=== PATIENT | female | born 1980 | race Caucasian/White ===

== ENCOUNTER 2017-12-15 06:05 | Day surgery (SDC) | payer MEDICAID ==
[~2017-12-15] VITALS: Ht 165.1 cm; Wt 46.2 kg
[~2017-12-15 06:05] MED LIST: CARB200T13 PO; ESTR1TAB15 PO; FERR240T2 PO; HYDR25CA94 PO; ONDA4TAB13 SL; OXCA150T PO; SUMA100T4 PO; SUMA20SP2 NS; TRAZ100T15 PO; VENL37.57 PO; VITAMIN D PO; [UNRECOGNIZED DRUG - CODE] PO; [UNRECOGNIZED DRUG - OTHER] PO
[2017-12-15] MEDS ORDERED: LACTATED RINGERS 1,000 ML IV SCH (07:20)
[2017-12-15] MEDS ORDERED: PROPOFOL 10 MG/ML, 20ML ONE (08:15)
[2017-12-15] MEDS ORDERED: ACETAMINOPHEN 325 MG TABLET PO PRN (09:00)
[2017-12-15] MEDS ORDERED: FENTANYL PF 100 MCG/2ML IV PRN (09:00)
[2017-12-15] MEDS ORDERED: PROMETHAZINE 25 MG/ML, 1ML IV PRN (09:00)
[2017-12-15] MEDS ORDERED: LORazepam 2 MG/ML, 1ML IVPush PRN (09:00)
[2017-12-15] MEDS ORDERED: ONDANSETRON 2MG/ML, 2ML IVPush PRN (09:00)
[2017-12-15] MEDS ORDERED: MIDAZOLAM 1 MG/ML, 2ML IV PRN (09:00)
[2017-12-15] MEDS ORDERED: OXYcodone 5 MG/5 ML ORAL.SOL UDC PO PRN (09:00)
== END 2017-12-15 09:50 ==
LOC: OUT 06:05
PROVIDERS: ATTEND Surgery
DX: K63.89 Other specified diseases of intestine (principal); D50.9 Iron deficiency anemia, unspecified; G62.9 Polyneuropathy, unspecified; Z93.3 Colostomy status; Z87.39 Personal history of other diseases of the musculoskeletal system and connective tissue; Z98.890 Other specified postprocedural states; Z90.710 Acquired absence of both cervix and uterus; Z72.89 Other problems related to lifestyle; Z87.891 Personal history of nicotine dependence; Z88.1 Allergy status to other antibiotic agents; Z88.0 Allergy status to penicillin; Z88.8 Allergy status to other drugs, medicaments and biological substances
CPT/HCPCS: 45330; J2704; J7120

== ENCOUNTER 2021-03-14 03:54 | Inpatient (IN) | payer MEDICAID ==
[~2021-03-14] VITALS: Ht 165.1 cm; Wt 55.6 kg
[~2021-03-14 03:54] MED LIST changes: -OXCA150T PO; +OXCA150T18 PO; +TRAZ-175 PO; -TRAZ100T15 PO
[2021-03-14] MEDS ORDERED: ONDANSETRON 2MG/ML, 2ML IVPush PRN ×2 (04:30→05:30)
[2021-03-14] MEDS ORDERED: SODIUM CHLORIDE 0.9% 1,000 ML IV ONE (04:30)
[2021-03-14] MEDS ORDERED: OXYC5TAB2 PO (04:37)
[2021-03-14] MEDS ORDERED: OXYC10SY PO (04:37)
--- NOTE | 2021-03-14 04:46 | NUR ---
pt refuses NG tube because "it will hurt", consequences of actions explained, pt still refuses
[2021-03-14] MEDS ORDERED: MIDAZOLAM 1 MG/ML, 2ML IVPush ONE (05:00)
[2021-03-14 05:06] LABS: BASOPHILS % (AUTO) 1 % (0-1); EOSINOPHILS % (AUTO) 1 % (1-7); LYMPHOCYTES % (AUTO) 18 % (22-44); MEAN CORPUSCULAR HEMOGLOBIN 25.5 pg (27.0-34.8); MEAN CORPUSCULAR HGB CONC 32.1 g/dL (32.4-35.8); MEAN PLATELET VOLUME 8.3 fL (7.4-10.4); MONOCYTES % (AUTO) 4 % (2-9); NEUTROPHILS % (AUTO) 77 % (42-75); PLATELET COUNT 231 x10^3/uL (130-400); RED BLOOD COUNT 5.02 x10^6/uL (3.82-5.3); RED CELL DISTRIBUTION WIDTH 18.5 % (9.6-15.2)
[2021-03-14 05:14] LABS: ALANINE AMINOTRANSFERASE 11 U/L (12-78); ALBUMIN 2.1 g/dL (3.4-5.0); ANION GAP 9 mmol/L (5-15); CALCIUM 7.4 mg/dL (8.5-10.1); CHLORIDE 102 mmol/L (98-107); CREATININE 1.11 mg/dL (0.55-1.02)
[2021-03-14 05:16] LABS: ALKALINE PHOSPHATASE 109 U/L (45-117); BILIRUBIN,TOTAL 0.2 mg/dL (0.2-1.0); TOTAL PROTEIN 6.6 g/dL (6.4-8.2)
[2021-03-14 05:28] VITALS: BP 105/72
[2021-03-14] MEDS ORDERED: PHARMACY MAY ADJ FOR RENAL FX MC PRN (05:30)
[2021-03-14] MEDS ORDERED: SODIUM CHLORIDE 0.9% 1,000 ML IV SCH (05:30)
[2021-03-14] MEDS: HYDROmorphone 2 MG/ML, 1ML IVPush PRN ×5 (05:58→23:28)
[2021-03-14] MEDS: CEFTRIAXONE 1,000 MG in DEXTROSE 5% 50 ML IVPB SCH (06:11)
[2021-03-14 06:13] VITALS: BP 92/58
[2021-03-14 06:15] VITALS: BP 92/68
[2021-03-14] MEDS: AZITHROMYCIN 500 MG in SODIUM CHLORIDE 0.9% 250 ML IV SCH (08:53)
[2021-03-14 11:27] VITALS: BP 93/59
[2021-03-14] MEDS: D5%-LACTATED RINGERS 1,000 ML IV SCH ×2 (15:24→23:28)
[2021-03-14] MEDS ORDERED: METH-640 PO (17:17)
[2021-03-14] MEDS ORDERED: ONDA8TAB16 PO (17:17)
[2021-03-14] MEDS ORDERED: TRAZ-96 PO (17:17)
[2021-03-14] MEDS ORDERED: CYCL10TA2 PO (17:17)
[2021-03-14] MEDS ORDERED: OXYC15TA3 PO (17:17)
[2021-03-14] MEDS ORDERED: SERT-238 PO (17:17)
[2021-03-14] MEDS ORDERED: MIRT-14 PO (17:17)
[2021-03-14] MEDS ORDERED: PANT40TA6 PO (17:17)
[2021-03-14] MEDS ORDERED: PREG50CA58 PO (17:17)
[2021-03-14 20:04] VITALS: BP 110/71
[2021-03-15 01:28] VITALS: BP 98/63
[2021-03-15] MEDS: HYDROmorphone 2 MG/ML, 1ML IVPush PRN ×2 (03:59→09:05)
[2021-03-15 05:52] LABS: BASOPHILS % (AUTO) 1 % (0-1); EOSINOPHILS % (AUTO) 1 % (1-7); LYMPHOCYTES % (AUTO) 14 % (22-44); MEAN CORPUSCULAR HEMOGLOBIN 25.3 pg (27.0-34.8); MEAN CORPUSCULAR HGB CONC 32.1 g/dL (32.4-35.8); MEAN PLATELET VOLUME 8.3 fL (7.4-10.4); MONOCYTES % (AUTO) 5 % (2-9); NEUTROPHILS % (AUTO) 80 % (42-75); PLATELET COUNT 303 x10^3/uL (130-400); RED BLOOD COUNT 4.39 x10^6/uL (3.82-5.3); RED CELL DISTRIBUTION WIDTH 18.4 % (9.6-15.2)
[2021-03-15 06:10] LABS: ALANINE AMINOTRANSFERASE 11 U/L (12-78); ALBUMIN 1.9 g/dL (3.4-5.0); ANION GAP 10 mmol/L (5-15); CALCIUM 7.4 mg/dL (8.5-10.1); CHLORIDE 109 mmol/L (98-107); CREATININE 0.63 mg/dL (0.55-1.02)
[2021-03-15 06:13] LABS: ALKALINE PHOSPHATASE 85 U/L (45-117); BILIRUBIN,TOTAL 0.2 mg/dL (0.2-1.0); TOTAL PROTEIN 5.6 g/dL (6.4-8.2)
[2021-03-15] MEDS: CEFTRIAXONE 1,000 MG in DEXTROSE 5% 50 ML IVPB SCH (06:25)
[2021-03-15 06:50] VITALS: BP 108/63
[2021-03-15] MEDS: AZITHROMYCIN 500 MG in SODIUM CHLORIDE 0.9% 250 ML IV SCH (09:05)
[2021-03-15] MEDS: ONDANSETRON ODT 4 MG PO SCH ×3 (12:00→20:43)
[2021-03-15] MEDS ORDERED: MAGNESIUM SULFATE PMX 4GM/100M 100 ML IVPB ONE (12:00)
[2021-03-15] MEDS ORDERED: POTASSIUM CHLORIDE 40 MEQ in SODIUM CHLORIDE 0.9% 500 ML IV ONE (12:00)
[2021-03-15] MEDS: PREGABALIN 50 MG CAP PO SCH ×3 (12:00→20:43)
[2021-03-15] MEDS ORDERED: OXYcodone IR 5MG TABLET PO SCH (12:00)
[2021-03-15 12:23] VITALS: BP 99/59
[2021-03-15] MEDS: PANTOPRAZOLE 40MG TABLET PO SCH (12:44)
[2021-03-15] MEDS: CYCLOBENZAPRINE 10 MG TABLET PO SCH ×3 (12:44→20:44)
[2021-03-15] MEDS: SERTRALINE 100MG TABLET PO SCH (12:44)
[2021-03-15] MEDS: OXYcodone IR 5MG TABLET PO PRN (17:54)
[2021-03-15 19:27] VITALS: BP 104/68
[2021-03-15] MEDS ORDERED: TRAZODONE 50MG TABLET PO SCH (21:00)
[2021-03-15] MEDS ORDERED: MIRTAZAPINE 15 MG TABLET PO SCH (21:00)
[2021-03-16] MEDS: OXYcodone IR 5MG TABLET PO PRN ×4 (00:12→14:35)
[2021-03-16] MEDS: D5%-LACTATED RINGERS 1,000 ML IV SCH ×2 (00:15→13:50)
[2021-03-16 01:18] VITALS: BP 100/62
[2021-03-16] MEDS: CEFTRIAXONE 1,000 MG in DEXTROSE 5% 50 ML IVPB SCH (05:00)
[2021-03-16 05:49] LABS: BASOPHILS % (AUTO) 1 % (0-1); EOSINOPHILS % (AUTO) 1 % (1-7); LYMPHOCYTES % (AUTO) 31 % (22-44); MEAN CORPUSCULAR HEMOGLOBIN 25.3 pg (27.0-34.8); MEAN CORPUSCULAR HGB CONC 31.7 g/dL (32.4-35.8); MEAN PLATELET VOLUME 8.2 fL (7.4-10.4); MONOCYTES % (AUTO) 5 % (2-9); NEUTROPHILS % (AUTO) 62 % (42-75); PLATELET COUNT 354 x10^3/uL (130-400); RED BLOOD COUNT 4.62 x10^6/uL (3.82-5.3); RED CELL DISTRIBUTION WIDTH 18.4 % (9.6-15.2)
[2021-03-16 05:55] LABS: CHLORIDE 112 mmol/L (98-107)
[2021-03-16 06:06] LABS: ALANINE AMINOTRANSFERASE 11 U/L (12-78); ALBUMIN 1.8 g/dL (3.4-5.0); ALKALINE PHOSPHATASE 78 U/L (45-117); ANION GAP 8 mmol/L (5-15); BILIRUBIN,TOTAL 0.2 mg/dL (0.2-1.0); CALCIUM 7.5 mg/dL (8.5-10.1); CREATININE 0.72 mg/dL (0.55-1.02); TOTAL PROTEIN 5.7 g/dL (6.4-8.2)
[2021-03-16 06:53] VITALS: BP 102/64
[2021-03-16] MEDS: ONDANSETRON ODT 4 MG PO SCH (09:00)
[2021-03-16] MEDS: PREGABALIN 50 MG CAP PO SCH (10:03)
[2021-03-16] MEDS: SERTRALINE 100MG TABLET PO SCH (10:03)
[2021-03-16] MEDS: PANTOPRAZOLE 40MG TABLET PO SCH (10:03)
[2021-03-16] MEDS ORDERED: POLY17PO5 PO (12:33)
[2021-03-16] MEDS: CYCLOBENZAPRINE 10 MG TABLET PO SCH (13:08)
[2021-03-16 13:46] VITALS: BP 110/71
[2021-03-16] MEDS ORDERED: BUTALB/APAP/CAFFEINE 50MG/325MG/40MG PO ONE (14:00)
[2021-03-16] MEDS ORDERED: OXYcodone IR 5MG TABLET PO ONE (14:30)
== END 2021-03-16 15:25 | disposition home or self-care (01) | DRG 720 ==
LOC: UNMERGE 04:14 → ED 04:14 → MERGE 04:14 → EDIP 04:38 → 4WST 05:14
PROVIDERS: ADMIT Family Medicine; ATTEND Internal Medicine
DX: A41.9 Sepsis, unspecified organism (principal); K56.51 Intestinal adhesions [bands], with partial obstruction; N17.9 Acute kidney failure, unspecified; J15.9 Unspecified bacterial pneumonia; E44.0 Moderate protein-calorie malnutrition; E87.1 Hypo-osmolality and hyponatremia; F11.20 Opioid dependence, uncomplicated; E83.42 Hypomagnesemia; E87.5 Hyperkalemia; Z68.20 Body mass index [BMI] 20.0-20.9, adult; E86.1 Hypovolemia; E87.6 Hypokalemia; F32.9 Major depressive disorder, single episode, unspecified; F41.9 Anxiety disorder, unspecified; F51.04 Psychophysiologic insomnia; G89.29 Other chronic pain; I12.9 Hypertensive chronic kidney disease with stage 1 through stage 4 chronic kidney disease, or unspecified chronic kidney disease; K21.9 Gastro-esophageal reflux disease without esophagitis; N18.9 Chronic kidney disease, unspecified; T40.2X5A Adverse effect of other opioids, initial encounter; Z79.891 Long term (current) use of opiate analgesic; Z82.3 Family history of stroke; Z87.891 Personal history of nicotine dependence; Z90.710 Acquired absence of both cervix and uterus; Z91.19 Patient's noncompliance with other medical treatment and regimen; Z93.3 Colostomy status; Z88.8 Allergy status to other drugs, medicaments and biological substances
CPT/HCPCS: 36415; 74021; 74240; 74248; 99285; J7121; 80053; 83690; 83735; 84100; 85025; G0378; J0456; J0696; J1170; J3480; J3475; J7030; J7040; J7050